=== PATIENT | female | born 1990 | race Asian ===

== ENCOUNTER → 2017-10-02 | Outpatient (CLI) | payer OTHER ==
--- NOTE | 2017-10-02 12:13 | RADIOLOGY IMAGING REPORT ---
FACILITY: [facility] PATIENT NAME: Venus Mallory : 1990 MR: [id number] V: [id number] EXAM DATE: ORDERING PHYSICIAN: RADHA JOLLEY TECHNOLOGIST: Location: [facility] [place] Patient: Venus Mallory : 1990 Visit/Account:[id number] Date of Sevice: 10/02/2017 2 VIEWS CHEST INDICATION: Positive QFT /PPD. COMPARISON: None available FINDINGS: Cardiomediastinal silhouette and pulmonary vessels within normal limits. There is no focal infiltrate or lobar consolidation. There is no pneumothorax or pleural effusion. No nodule. Upper abdomen is unremarkable. No acute bony abnormality. IMPRESSION: 1. No indication of acute or active disease. Report Dictated By: Gerson Hannah at 10/02/2017 12:07 PM Report E-Signed By: Gerson Hannah at 10/02/2017 12:09 PM WSN:[id number]
== END ==
LOC: RAD 11:42
PROVIDERS: ATTEND Pediatrics Adolescent Medicine
DX: R76.12 Nonspecific reaction to cell mediated immunity measurement of gamma interferon antigen response without active tuberculosis (principal)
CPT/HCPCS: 71046